=== PATIENT | female | born 1995 | race Caucasian/White ===

== ENCOUNTER 2017-07-17 15:08 | Emergency (ER) | payer BC ==
--- NOTE | 2017-07-17 17:01 | EDPHY ---
HPI/HX/ROS/PE/MDM Narrative: CHIEF COMPLAINT: Left flank pain HISTORY OF PRESENT ILLNESS: This patient is a 21 year old female with history of kidney stones and recent flu diagnosis complaining of left flank pain. [place] fever, chills, and kidney pain. She states "my kidneys were hurting really bad" and that she had "the highest fever I've ever had", unmeasured because she was staying in a cabin without access to a thermometer. She vomited at that time as well. Monday, went to urgent care, where she had a positive influenza swab and UA positive for hematuria. Today, she continues to have left kidney pain, which radiates to her lower back. She continues to have a low-grade fever, but does not feel as febrile as Monday evening. She has been drinking a lot of fluids. She denies dysuria. No other body aches, headache. She has taken Mucinex for symptom relief. No chest pain, shortness of breath, palpitations, diarrhea, lightheadedness. REVIEW OF SYSTEMS: Aside from elements discussed in the HPI, a comprehensive 10-point review of systems was reviewed and is negative. PAST MEDICAL HISTORY: History of kidney stones. Takes oral contraceptives ( Loestrin) (Allergy to Cefzil) SOCIAL HISTORY: Nonsmoker. No marijuana or illicit drug use. Social alcohol use. VITAL SIGNS: Reviewed by me GENERAL: Well-developed, well-nourished, resting comfortably in no respiratory distress. HEENT: Atraumatic. Eyes: No icterus, no injection. Mouth: moist mucous membranes. No erythema or lesions. Neck: supple with no adenopathy. LUNGS: Clear to auscultation bilaterally, no wheezes, rhonchi or rales. CARDIAC: Regular rate and rhythm, no rubs, murmurs or gallops. ABDOMEN: Soft, nontender, nondistended, bowel sounds normal. BACK: Left CVA tenderness. Pain radiates down left paraspinous muscles and around low back. . EXTREMITIES: No trauma. No edema. Range of motion is normal throughout. NEURO: Alert and oriented, grossly nonfocal. SKIN: Warm and dry, no rash. PSYCHIATRIC: Normal mentation, no agitation. Portions of this note were transcribed by a medical oncologist. I personally performed a history, physical exam, medical decision making, and confirmed accuracy of information the transcribed note. ED Course: 21 year old female with the diagnosis yesterday of influenza A presents complaining of left-sided flank pain. Patient was told she had hematuria earlier. Plan for UA. UA negative for hematuria. Plan for additional studies including chest x-ray, labs including CBC, chemistries. Plan for repeat flu swab. Flu swab positive for flu A. No evidence of hematuria, rhabdo, significant dehydration, lower lobe pneumonia her alternative causes for the patient's flank pain. She does have some right- sided pain as well and please the bleeding having myalgias secondary to her influenza. Urine has some white cells in it. We will treat for potential pyelonephritis with IV fluids and antibiotics. Plan to discharge home in good condition with prescription for Keflex. Urine cultures pending. Follow up and return precautions discussed. She is comfortable with this plan. MDM: Differential diagnoses for the patient's symptom complex was considered including but not limited to influenza, viral syndrome, urinary tract infection , pyelonephritis, dehydration, kidney stone. - Data Points Imaging Results: Imaging Impressions Chest X-Ray 07/17/17 17:10 Impression: Clear lungs. No pneumothorax, pneumonia or effusion. Imaging: I viewed and interpreted images myself Laboratory Results: Laboratory Results 07/17/17 17:10 07/17/17 17:35 07/17/17 07/17/17 07/17/17 18:30 17:35 17:35 WBC RBC Hgb Hct MCV MCH MCHC RDW Plt Count MPV Neut % (Auto) Lymph % (Auto) Morehouse % (Auto) Eos % (Auto) Baso % (Auto) Nucleat RBC Rel Count Absolute Neuts (auto) Absolute Lymphs (auto) Absolute Monos (auto) Absolute Eos (auto) Absolute Basos (auto) Absolute Nucleated RBC Immature Gran % Seg Neutrophils % Band Neutrophils % Lymphocytes % Monocytes % Eosinophils % Immature Gran # Absolute Seg Neuts Absolute Band Neuts Absolute Lymphocytes Absolute Monocytes Absolute Eosinophils RBC/WBC/PLT Morphology Platelet Estimate Smear Review By Sodium 143 mEq/L mEq/L (135-145) Potassium 4.5 mEq/L mEq/L (3.5-5.2) Chloride 105 mEq/L mEq/L (97-110) Carbon Dioxide 22 mEq/l mEq/l (22-31) Anion Gap 16 mEq/L mEq/L (8-16) BUN 9 mg/dL mg/dL (7-23) Creatinine 0.7 mg/dL mg/dL (0.6-1.0) Estimated GFR > 60 Glucose 77 mg/dL mg/dL (70-100) Calcium 9.9 mg/dL mg/dL (8.5-10.4) Beta HCG, Qual NEGATIVE Urine Color Urine Appearance Urine pH Ur Specific Prospect Urine Protein Urine Ketones Urine Blood Urine Nitrate Urine Bilirubin Urine Urobilinogen Ur Leukocyte Esterase Urine RBC Urine WBC Ur Epithelial Cells Urine Bacteria Hyaline Casts Urine Mucus Urine Glucose Nasal Influenza A PCR FLU A DETECTED H (NEGATIVE) Nasal Influenza B PCR NEGATIVE FOR FLU B (NEGATIVE) 07/17/17 07/17/17 07/17/17 17:10 15:25 15:25 WBC 4.99 10^3/uL 10^3/uL (3.80-9.50) RBC 5.03 10^6/uL 10^6/uL (4.18-5.33) Hgb 15.5 g/dL g/dL (12.6-16.3) Hct 45.4 % % (38.0-47.0) MCV 90.3 fL fL (81.5-99.8) MCH 30.8 pg pg (27.9-34.1) MCHC 34.1 g/dL g/dL (32.4-36.7) RDW 12.7 % % (11.5-15.2) Plt Count 256 10^3/uL 10^3/uL (150-400) MPV 9.9 fL fL (8.7-11.7) Neut % (Auto) Not Reported Lymph % (Auto) Not Reported Morehouse % (Auto) Not Reported Eos % (Auto) Not Reported Baso % (Auto) Not Reported Nucleat RBC Rel Count 0.0 % % (0.0-0.2) Absolute Neuts (auto) Not Reported Absolute Lymphs (auto) Not Reported Absolute Monos (auto) Not Reported Absolute Eos (auto) Not Reported Absolute Basos (auto) Not Reported Absolute Nucleated RBC 0.00 10^3/uL 10^3/uL (0-0.01) Immature Gran % Not Reported Seg Neutrophils % 37 % % Band Neutrophils % 9 % % Lymphocytes % 32 % % Monocytes % 21 % % Eosinophils % 1 % % Immature Gran # Not Reported Absolute Seg Neuts 1.85 10^/uL 10^/uL (1.70-6.50) Absolute Band Neuts 0.45 10^3/uL 10^3/uL (0.00-0.70) Absolute Lymphocytes 1.60 10^3/uL 10^3/uL (1.00-3.00) Absolute Monocytes 1.05 10^3/uL H 10^3/uL (0.30-0.80) Absolute Eosinophils 0.05 10^3/uL 10^3/uL (0.03-0.40) RBC/WBC/PLT Morphology NORMAL (NORMAL) Platelet Estimate ADEQUATE (ADEQ) Smear Review By Pending Sodium Potassium Chloride Carbon Dioxide Anion Gap BUN Creatinine Estimated GFR Glucose Calcium Beta HCG, Qual Urine Color YELLOW Urine Appearance HAZY Urine pH 6.0 (5.0-7.5) Ur Specific Prospect 1.025 (1.002-1.030) Urine Protein NEGATIVE (NEGATIVE) Urine Ketones NEGATIVE (NEGATIVE) Urine Blood NEGATIVE (NEGATIVE) Urine Nitrate NEGATIVE (NEGATIVE) Urine Bilirubin NEGATIVE (NEGATIVE) Urine Urobilinogen NEGATIVE EU EU (0.2-1.0) Ur Leukocyte Esterase NEGATIVE (NEGATIVE) Urine RBC NONE SEEN /hpf /hpf (0-3) Urine WBC 5-10 /hpf H /hpf (0-3) Ur Epithelial Cells TRACE /lpf /lpf (NONE-1+) Urine Bacteria 2+ /hpf H /hpf (NONE SEEN) Hyaline Casts 1-5 /lpf /lpf (0-1) Urine Mucus TRACE /lpf /lpf (NONE-1+) Urine Glucose NEGATIVE (NEGATIVE) Nasal Influenza A PCR Nasal Influenza B PCR Medications Given: Discontinued Medications Sodium Chloride (Ns) 1,000 mls @ 0 mls/hr IV EDNOW ONE; Wide Open PRN Reason: Protocol Stop: 07/17/17 17:10 Last Admin: 07/17/17 17:38 Dose: 1,000 mls Ceftriaxone Sodium 1 gm/ (Sterile Water) 10 mls @ 150 mls/hr IV EDNOW ONE PRN Reason: Protocol Stop: 07/17/17 18:37 Last Admin: 07/17/17 20:02 Dose: 10 mls General Time Seen by Provider: 07/17/17 16:54 Initial Vital Signs: Initial Vital Signs Temperature (C) 37.2 C 07/17/17 15:20 Heart Rate 75 07/17/17 15:20 Respiratory Rate 18 07/17/17 15:20 Blood Pressure 129/84 H 07/17/17 15:20 O2 Sat (%) 96 07/17/17 15:20 O2 Delivery Mode Room Air Allergies/Adverse Reactions: No Known Allergies Allergy (Unverified 07/17/17 15:25) Home Medications: Medication Instructions Recorded Cephalexin [Keflex (RX)] 500 mg PO TID 7 Days cap 07/17/17 Departure - Departure Disposition: Home, Routine, Self-Care Clinical Impression: Urinary tract infection, Flank pain, Influenza A Condition: Good Instructions: Urinary Tract Infection in Women (ED), Influenza (ED), Flank Pain (ED) Additional Instructions: Follow-up with your primary doctor in 2-3 days. Take Keflex as prescribed. It is possible that the bacteria causing your infection is resistant to the antibiotic we've placed you on. We have sent a urine for culture, if this comes back with a resistant bacteria, we will call you at the number you provided to us. Use ibuprofen and Tylenol as directed below as needed for fever and body aches. Drink plenty of fluids. Return to the emergency department immediately for high fever, worsening pain, severe headache or neck pain, difficulty breathing, abdominal pain, rash or other worsening of condition. Adult Pain & Fever Control: We recommend Acetaminophen (Tylenol) and Ibuprofen (Motrin,Advil) for pain and fever control. When fever is high or pain severe, both drugs can be used at the same time, but at different intervals. Please note the time differences. Your dose is: Acetaminophen 650mg every 4 to 6 hours Ibuprofen 600mg every 6 to 8 hours with food Note: do not take Acetaminophen with Hydrocodone (Vicodin, Lortab) or Oxycodone (Percocet). These medications also contain Acetaminophen. No more than 3000mg of Acetaminophen should be taken in 24 hours (for an adult). Referrals: Maile Denise MD [Medical Doctor] - As per Instructions Prescriptions: Cephalexin [Keflex (RX)] 500 mg PO TID 7 Days cap Report Scribed for: Karolina Grant Report Scribed by: Lisbeth Iglesias Date of Report: 07/17/17 Time of Report: 17:02
[2017-07-17] MEDS ORDERED: NS 1,000 ML IV ONE (17:09)
[2017-07-17 18:00] LABS: PLATELET COUNT 256 10^3/uL (150-400)
[2017-07-17] MEDS ORDERED: cefTRIAXone 1 GM in STERILE WATER INJ 10 ML IV ONE (18:34)
[2017-07-17 20:19] VITALS: RESP 16
[2017-07-17 20:20] VITALS: BP 137/71; PULSE 71; TEMP 98.2; O2SAT 96
== END 2017-07-17 20:20 | disposition home or self-care (01) ==
DX: N39.0 Urinary tract infection, site not specified (principal); B96.89 Other specified bacterial agents as the cause of diseases classified elsewhere; J10.1 Influenza due to other identified influenza virus with other respiratory manifestations; E86.9 Volume depletion, unspecified
CPT/HCPCS: 96374; J0696

== ENCOUNTER 2018-01-01 19:33 | Emergency (ER) | payer BC ==
--- NOTE | 2018-01-01 19:58 | EDPHY ---
H & P Time Seen by Provider: 01/01/18 19:40 HPI/ROS: Chief complaint. Muscle spasms HPI. 22-year-old female with left back pain. It began 45 min prior to arrival when she was getting out of a [place]. She twisted and when she got out of the [place] her back began to hurt. She had no symptoms prior to getting into the [place]. She has had no fever or cough. She has increased left back pain with taking a deep breath as well as twisting. No unusual leg pain or swelling. No history of back pain. ROS Constitutional. no fever/chills, no weakness Eyes. no problems with vision ENT. no sore throat, no nasal drainage Cardiovascular. no chest pain Respiratory. no shortness of breath, no cough Abdominal. no abdominal pain, no nausea/vomiting, no diarrhea . no problems urinating MS. Left back pain Skin. no rash Lymph. no swollen glands Neuro. no headache, no dizziness, no difficulty walking or with speech Past Medical/Surgical History: Healthy Social History: Single, nonsmoker, no alcohol Smoking Status: Never smoked Physical Exam: General Appearance: Alert well-developed female mild distress vital signs stable Eyes: Pupils equal and round no pallor or injection. ENT, Mouth: Mucous membranes are moist. Respiratory: There are no retractions, lungs are clear to auscultation. Cardiovascular: Regular rate and rhythm. Gastrointestinal: Abdomen is soft and nontender, no masses, bowel sounds normal. Neurological: Awake and alert, sensory and motor exams grossly normal. Skin: Warm and dry, no rashes. Musculoskeletal: Neck is supple nontender. No T, L, S spine tenderness. She has tenderness to palpation inferior to the spine of the left scapula. Extremities symmetrical, full range of motion. Psychiatric: Patient is oriented X 3, there is no agitation. Constitutional: Initial Vital Signs Temperature (C) 37 C 01/01/18 19:35 Heart Rate 84 01/01/18 19:35 Respiratory Rate 16 01/01/18 19:35 Blood Pressure 117/94 H 01/01/18 19:35 O2 Sat (%) 98 01/01/18 19:35 O2 Delivery Mode Room Air Allergies/Adverse Reactions: cefazolin Allergy (Verified 01/01/18 19:38) Home Medications: Medication Instructions Recorded Cephalexin [Keflex (RX)] 500 mg PO TID 7 Days cap 07/17/17 Cyclobenzaprine [Flexeril 10 MG 10 mg PO TID #10 tab 01/01/18 (*)] Medical Decision Making Procedures: Ibuprofen and Flexeril. ED Course/Re-evaluation: Serial evaluations patient is stable. Patient and I discussed treatment plan including criteria for return importance of follow-up and further evaluation. She expresses understanding and agreement Differential Diagnosis: I think that this is likely muscular back pain. She had no symptoms prior to getting out of the [place]. I have considered pulmonary embolus as well as pneumonia. Departure - Departure Disposition: Home, Routine, Self-Care Clinical Impression: Thoracic back pain Qualifiers: Chronicity: acute Back pain laterality: left Qualified Code(s): M54.6 - Pain in thoracic spine Condition: Good Instructions: Muscle Spasm (ED) Additional Instructions: Ice to sore area next 24 hr. Ibuprofen 4-600 mg every 6 hr for discomfort. Flexeril as muscle Relaxer. Return for worsening pain, fever, trouble breathing. Recheck in 2-3 days if not improved Referrals: NONE *PRIMARY CARE P,. [Primary Care Provider] - As per Instructions Daina Larose MD [Medical Doctor] - 2-3 days, if not improved Prescriptions: Cyclobenzaprine [Flexeril 10 MG (*)] 10 mg PO TID #10 tab
[2018-01-01] MEDS ORDERED: IBUPROFEN 600 MG TAB PO ONE (20:21)
[2018-01-01] MEDS ORDERED: CYCLOBENZAPRINE 10 MG TAB PO ONE (20:21)
[2018-01-01 20:33] VITALS: BP 115/78
== END 2018-01-01 20:37 | disposition home or self-care (01) ==
DX: S29.9XXA Unspecified injury of thorax, initial encounter (principal); X50.9XXA Other and unspecified overexertion or strenuous movements or postures, initial encounter; Y92.89 Other specified places as the place of occurrence of the external cause; Y99.8 Other external cause status; Y93.89 Activity, other specified